=== PATIENT | female | born 1975 | race Two or more races ===

== ENCOUNTER → 2018-04-14 | Outpatient (CLI) | payer OTHER ==
[~2018-04-14] MED LIST: ACYCLOVIR15 GM TP; CIPRO750 MG PO; NABUMETONE750 MG PO; PRENATAL ONE T1 EACH PO
== END | disposition home or self-care (01) ==
LOC: MAMO-SONO 10:59
DX: Z12.31 Encounter for screening mammogram for malignant neoplasm of breast (principal); R10.84 Generalized abdominal pain; N92.1 Excessive and frequent menstruation with irregular cycle; N60.01 Solitary cyst of right breast; N60.02 Solitary cyst of left breast

== ENCOUNTER → 2025-06-13 | Emergency (ER) | payer OTHER ==
[~2025-06-13] VITALS: Ht 167.6 cm; Wt 74.4 kg
[~2025-06-13] MED LIST changes: +8 HOUR PAIN RE650 M1 PO; +ACETAMINOPHEN 500 MG GEL..CAP PO ONE; +ALBUTEROL SULFATE 3 ML/2.5 MG AMPUL.NEB IH ONE; +GUAIFENESIN 200 MG/10 ML BLIST.PACK PO ONE; +IPRATROPIUM BROMIDE 0.5 MG/2.5 ML AMPUL.NEB IH ONE; +MEDROLPACK PO; +METHYLPREDNISOLONE SOD SUCC 125 MG VIAL IV ONE; +NEBUSAL4 ML IH; +ROBAFEN CF LIQ118 ML PO; +SODIUM CHLORIDE FOR INHALATION 1 VIAL.NEB IH ONE; +ZITHROMAX500 MG PO
[2025-06-13 12:37] LABS: BASO % 0.4 % (0.1-1.2); EOS # 0.17 (0.04-0.54); EOS % 1.7 % (0.7-7.0); LYMPH # 1.66 (1.18-3.74); LYMPH % 17.0 % (19.3-53.1); MEAN PLATELET VOLUME 11.60 fl (9.4-12.4); MONO # 0.54 (0.24-0.82); MONO % 5.5 % (4.7-12.5); NEUT # 7.35 (1.56-6.13); NEUT % 75.3 % (34.0-71.1); RED CELL DISTRIBUTION WIDTH 12.8 % (11.6-14.4); URINE APPEARANCE Clear; URINE BILIRRUBIN Negative (NEGATIVE); URINE BLOOD Negative; URINE COLOR Yellow; URINE GLUCOSE Negative (NEGATIVE); URINE KETONE Negative (NEGATIVE); URINE LEUKOCYTE Negative; URINE NITRATE Negative; URINE PROTEIN Negative (NEGATIVE); URINE UROBILINOGEN 0.2 E.U./dl
[2025-06-13 12:41] LABS: URINE BACTERIA 88.5 uL (0.0-1933); URINE EPITHELIAL CELLS 10.1 uL (0.0-38.8); URINE RBC 7.4 uL (0.0-20.8)
[2025-06-13 12:59] LABS: COVID-19 AG NEGATIVE (NEGATIVE)
[2025-06-13 13:06] LABS: ALT/SGPT 215.0 U/L (12-78); AST/SGOT 106.0 U/L (15-37); BILIRUBIN TOTAL 0.4 mg/dL (0.3-1.2); BUN CREA RATIO 11.0 (7.0-25.0); CREATININE SERUM 0.8 mg/dL (0.55-1.02); GFR 76.24; GLOBULINA 3.9 G/DL (2.4-3.5); GLUCOSE FASTING 94.0 mg/dL (65-100); OSMOLALITY SERUM 282.0 MOSM/KG (275-295)
[2025-06-13 13:18] LABS: URINE CAST 0.00 uL (0.0-1.40); URINE WBC 0.6 uL (0.0-23.2)
== END | disposition home or self-care (01) ==
LOC: ER 09:06
DX: B34.9 Viral infection, unspecified (principal); Z91.041 Radiographic dye allergy status; Z91.013 Allergy to seafood; Z20.822 Contact with and (suspected) exposure to COVID-19

== ENCOUNTER → 2025-06-15 | Emergency (ER) | payer OTHER ==
[~2025-06-15] VITALS: Ht 167.6 cm; Wt 75.3 kg
[~2025-06-15] MED LIST changes: -ACETAMINOPHEN 500 MG GEL..CAP PO ONE; -ALBUTEROL SULFATE 3 ML/2.5 MG AMPUL.NEB IH ONE; +ALBUTEROL SULFATE 3 ML/2.5 MG AMPUL.NEB IH SCH; -GUAIFENESIN 200 MG/10 ML BLIST.PACK PO ONE; -IPRATROPIUM BROMIDE 0.5 MG/2.5 ML AMPUL.NEB IH ONE; +IPRATROPIUM BROMIDE 0.5 MG/2.5 ML AMPUL.NEB IH SCH; +METHYLPREDNISOLONE SOD SUCC 125 MG VIAL ONE; -SODIUM CHLORIDE FOR INHALATION 1 VIAL.NEB IH ONE
[2025-06-15 10:28] VITALS: BP 121/83; O2SAT 96
[2025-06-15 12:29] LABS: BASO % 0.4 % (0.1-1.2); EOS # 0.21 (0.04-0.54); EOS % 1.8 % (0.7-7.0); LYMPH # 2.76 (1.18-3.74); LYMPH % 24.3 % (19.3-53.1); MEAN PLATELET VOLUME 10.80 fl (9.4-12.4); MONO # 0.69 (0.24-0.82); MONO % 6.1 % (4.7-12.5); NEUT # 7.62 (1.56-6.13); NEUT % 67.1 % (34.0-71.1); RED CELL DISTRIBUTION WIDTH 12.9 % (11.6-14.4)
[2025-06-15 13:15] LABS: COVID-19 AG NEGATIVE (NEGATIVE)
[2025-06-15 13:15] LABS: BUN CREA RATIO 20.0 (7.0-25.0); CREATININE SERUM 0.65 mg/dL (0.55-1.02); GFR 96.88; GLUCOSE FASTING 107.0 mg/dL (65-100); OSMOLALITY SERUM 289.0 MOSM/KG (275-295)
== END | disposition home or self-care (01) ==
LOC: ER 09:44
PROVIDERS: General Practice
DX: J45.901 Unspecified asthma with (acute) exacerbation (principal); B34.9 Viral infection, unspecified; Z91.041 Radiographic dye allergy status; Z91.013 Allergy to seafood; Z20.822 Contact with and (suspected) exposure to COVID-19